=== PATIENT | male | born 1985 | race African-American/Black ===

== ENCOUNTER 2016-12-23 23:53 | Emergency (ER) | payer SELFPAY ==
[~2016-12-23] VITALS: Ht 177.8 cm; Wt 61.7 kg
[~2016-12-23 23:53] MED LIST: AUGMENTIN875 MG PO; MOTRIN800 MG PO; NAPROSYN500 MG PO; PEN-VEE K,VEET500 MG PO; PEPCID COMPLET1 EACH PO; PREVACID30 MG PO; ROBITUSSIN AC,T10 ML PO; ULTRAM50 MG PO; VENTOLIN HFA18 GM IH; ZITHROMAX Z-PA250 MG PO
[2016-12-24 01:07] LABS: HEMATOCRIT 50.6 % (38.0-50.0); MCH 29.2 PG (29.0-34.0); MCHC 33.6 G/DL (30.0-36.0); MCV 86.8 FL (86-99); RBC DIS.WIDTH-CV 12.9 % (11.8-14.6); RBC DIS.WIDTH-SD 40.5 % (39-53); RED BLOOD COUNT 5.83 M/uL (4.00-5.50); WHITE BLOOD COUNT 9.3 K/uL (4.1-10.2)
[2016-12-24] MEDS ORDERED: HYCODAN SYRUP480 ML PO (01:07)
[2016-12-24] MEDS ORDERED: DOXYCYCLINE HY100 MG PO (01:07)
[2016-12-24 01:19] LABS: CHLORIDE 106 mEq/L (99-109); SODIUM 141 mEq/L (136-147)
[2016-12-24 01:21] LABS: GLUCOSE 99 mg/dL (70-99)
[2016-12-24 01:22] LABS: ANION GAP 11 MEQ/L (2-14)
[2016-12-24 01:25] LABS: GFR ESTIMATE (CALCULATED) > 59 mL/min/; UREA NITROGEN (BUN) 6 mg/dL (9-23)
[2016-12-24 01:38] VITALS: BP 140/80
[2016-12-24 02:07] LABS: MEAN PLAT.VOLUME 12.1 uM^3 (9.0-12.4); PLAT.SUFFICIENCY ADEQUATE; PLATELET COUNT 171 K/uL (156-360)
== END 2016-12-24 01:39 | disposition home or self-care (01) ==
LOC: EME 23:53
DX: J06.9 Acute upper respiratory infection, unspecified (principal); F17.200 Nicotine dependence, unspecified, uncomplicated
CPT/HCPCS: 71020; 80048; 85027; 99281; 99283